=== PATIENT | female | born 1970 | race Caucasian/White ===

== ENCOUNTER 2018-08-11 06:32 | Day surgery (SDC) | payer BC ==
--- NOTE | 2018-08-06 12:17 | HP ---
HISTORY AND PHYSICAL: DATE OF SURGERY: 08/11/18 DATE OF OFFICE VISIT: 08/05/18 SURGEON: Rose Marie Rivera MD.* (DICTATED BY CARO WALTER) PROCEDURE: Right knee arthroscopy with partial meniscectomy, possible chondroplasty, and possible synovectomy. CHIEF COMPLAINT: Right knee pain. HISTORY OF PRESENT ILLNESS: Ms. Barnes is a 48-year-old female with complaints of right knee pain. An MRI confirms a meniscus tear. She is elected to proceed with surgery. PAST MEDICAL HISTORY: Denies. PAST SURGICAL HISTORY: 1. ACL reconstruction of the left knee. 2. D and C x2. CURRENT MEDICATIONS: Ibuprofen. ALLERGIES: 1. PENICILLIN. 2. CELEBREX. 3. SULFA. FAMILY HISTORY: Cancer. SOCIAL HISTORY: She is a 48-year-old female. She lives with her and states she does not smoke or use drugs. She uses occasional alcohol. REVIEW OF SYSTEMS: A complete 14-point review of systems was reviewed with the patient and all negative and noncontributory. PHYSICAL EXAMINATION GENERAL: She is well-developed, well-nourished, in no acute distress. VITAL SIGNS: She stands 64 inches tall, weighs 192 pounds. Her blood pressure 116/70 and heart rate 68. HEENT: Normocephalic and atraumatic. NECK: Supple. No palpable lymph nodes. PULMONARY: The lungs are clear to auscultation bilaterally. CARDIAC: Regular rate and rhythm. Strong S1, S2. ABDOMEN: Soft, nontender, and nondistended. MUSCULOSKELETAL: Right lower extremity, the skin is intact. There is no open wounds or abrasions. She has a mild to moderate joint effusion of the right knee. Range of motion is 0 to 100 degrees flexion. Positive Apley's and Bin's. She has 2+ dorsalis pedis pulses in the lower extremity. Muscle group strengths are intact at 5/5. She has intact sensation. NEUROLOGIC: She is alert and oriented x3. ASSESSMENT AND PLAN: Ms. Barnes is a 48-year-old female with complaints of right knee pain and an MRI confirms a lateral meniscus tear which has flipped superiorly. She has elected to proceed with a right knee arthroscopy with partial meniscectomy, possible chondroplasty, and possible synovectomy. Surgery scheduled for 08/11/[address] Rivera discussed the risks and benefits of the surgery on today's visit and all of her questions were answered. She will follow up with Dr. Rivera in two weeks after the surgery. CARO WALTER [id number]/[facility] #: [id number] FLACO
[~2018-08-11 06:32] MED LIST: Buffered Lidocaine 1% SYRIN* 1 ML/SYRINGE INTRADERM ONE; Famotidine IV* 10 MG/ML 2 ML (20 mg) IV ONE; Lactated Ringers 1000 ML Bag* 1,000 ML IV SCH
[2018-08-11] MEDS ORDERED: ROPIVACAINE 5 MG/ML 30 ML BTL (0.5%) ONE (06:55)
[2018-08-11] MEDS ORDERED: methylPREDNISolone ACETATE 80* 80 MG/ML 1 ML VIAL ONE (06:55)
[2018-08-11] MEDS ORDERED: EPINEPHRINE 1 MG/ML 1 ML VIAL ONE (06:55)
[2018-08-11] MEDS ORDERED: Clindamycin 900 MG/D5W BAG(*) 900 MG/50 ML BAG IVPB ONE (07:21)
[2018-08-11] MEDS ORDERED: Famotidine IV* 10 MG/ML 2 ML (20 mg) ONE (07:21)
[2018-08-11] MEDS ORDERED: Midazolam* 1 MG/ML 5 ML VIAL (5 MG) ONE (07:51)
[2018-08-11] MEDS ORDERED: fentaNYL* 50 MCG/ML 2 ML VIAL (100 MCG VIAL) ONE (07:51)
[2018-08-11] MEDS ORDERED: Propofol* 10 MG/ML 20 ML BTL ONE (07:55)
[2018-08-11] MEDS ORDERED: DiMENhydriNATE IV* 50 MG/ML VIAL ONE (07:55)
[2018-08-11] MEDS ORDERED: Dexamethasone IV* 4 MG/ML 1 ML (4 MG) ONE (07:55)
[2018-08-11] MEDS ORDERED: Ondansetron INJ* 2 MG/ML VIAL ONE (07:55)
[2018-08-11] MEDS ORDERED: Ketorolac INJ* 30 MG/ML 1 ML VIAL ONE (07:55)
[2018-08-11] MEDS ORDERED: Acetaminophen TAB* 325 MG PO PRN (08:42)
[2018-08-11] MEDS ORDERED: Ondansetron INJ* 2 MG/ML VIAL IV PRN (08:42)
[2018-08-11] MEDS ORDERED: oxyCODONE TAB* 5 MG TAB PO PRN (08:42)
[2018-08-11] MEDS ORDERED: Naloxone* 0.4 MG/ML 1 ML VIAL IV PRN (08:42)
[2018-08-11] MEDS ORDERED: HYDROmorphone INJ1* 1 MG/ML SYRINGE ONE (09:40)
[2018-08-11] MEDS ORDERED: oxyCODONE TAB* 5 MG TAB ONE (09:40)
[2018-08-11] MEDS ORDERED: Acetaminophen TAB* 325 MG ONE (09:41)
[2018-08-11] MEDS: HYDROmorphone INJ1* 1 MG/ML SYRINGE IV PRN ×4 (09:43→10:36)
[2018-08-11 12:04] VITALS: BP 157/95
--- NOTE | 2018-08-11 22:56 | OP ---
DATE OF OPERATION: 08/11/18 - [facility] DATE OF : 66 ATTENDING SURGEON: Rose Marie Rivera MD. MEDIA RELATIONS MANAGER: CARO Cervantes. Ms. Nevarez did help throughout the procedure with preparation of the leg, wound retraction, manipulation of the knee, and wound closure. ANESTHESIOLOGIST: Dr. Rutledge. ANESTHESIA: General. PRE-OP DIAGNOSIS: Right knee pain with lateral meniscal tear. POST-OP DIAGNOSES: 1. Right knee lateral meniscal tear, medial meniscal tear. 2. Njkudjeo-ea-gpfvyd osteoarthritis in the medial and patellofemoral compartments. OPERATIVE PROCEDURE: Right knee arthroscopy with partial medial meniscectomy, partial lateral meniscectomy, patellofemoral chondroplasty. ESTIMATED BLOOD LOSS: Less than 25 cc. SPECIMEN: None. COMPLICATIONS: None. BRIEF HISTORY/INDICATIONS: Ms. Barnes is a 48-year-old female who developed acute mechanical symptoms in the right knee along the lateral joint line. MRI confirmed a displaced lateral meniscal tear. She did have some known baseline arthritis. She failed conservative treatment. Due to the severity of the pain and failure of conservative treatment, she elected to have right knee arthroscopy with partial meniscectomy, possible chondroplasty, possible synovectomy, possible plica excision. Informed consent was obtained from the patient. She understood the risks of surgery included but were not limited to, bleeding, infection, damage to nearby structures, continued pain, need for further surgery, retear of the meniscus, progression of arthritis, stroke, heart attack, blood clot, and . She wished to proceed. INTRAOPERATIVE FINDINGS: Intraoperatively, the patient was noted to have a large parrot-beak type tear displaced anteriorly along the lateral meniscus. This involved the white-red zone. She had a radial tear in the posterior horn of the medial meniscus. She was noted to have grade 3 and 4 Outerbridge cartilage changes in the patellofemoral and medial compartment with exposed subchondral bone and cartilage flapping. DESCRIPTION OF PROCEDURE: Ms. Barnes was identified in the preanesthesia unit. Her right lower extremity was marked as the correct operative site. Informed consent was signed and placed in the chart. The patient was taken to the operating room and placed under general anesthesia. Right lower extremity was prepped and draped in the usual sterile fashion. Preop time-out was made to correctly identify the patient, side, and site. Appropriate perioperative antibiotics were given within 1 hour of incision. A 0.5 cm anterolateral portal incision was made with a #10 blade and carried down through the capsule. Trocar was introduced. The light and water sources were then turned on. As soon as the light and water sources were turned on, there was immediate visualization of the suprapatellar pouch. A tour was made. Suprapatellar pouch had no obvious abnormality. Patellofemoral compartment showed some cartilage flapping and grade 3 and 4 Outerbridge cartilage changes along the medial patellar facet. Medial gutters showed no obvious loose bodies. Medial compartment showed grade 3 and 4 Outerbridge cartilage changes of the medial femoral condyle with a large cartilage flap and exposed subchondral bone. A posterior medial meniscus tear was visualized. ACL and PCL appeared to be intact. The knee was placed in a [id number]-[id number]-nqee position. The entire anterolateral joint line was obscured by a displaced meniscal fragment. Under direct visualization, a medial portal incision was made with a #10 blade. Probe was introduced and a second tour of the knee joint was performed. Posteromedial meniscus tear was a radial tear of the white-red zone. Straight biter and shaver were used to perform partial medical meniscectomy. A smooth border of the posteromedial meniscus was obtained. Further probing of the medial meniscus showed no additional tears or slipped fragments. The knee was placed in a [id number]-[id number] position. Shaver and straight biter was used to perform partial lateral meniscectomy. This was a large parrot-beak type tear displaced into the joint space involving the white-red zone. This involved the majority of the lateral meniscus. Smooth border of the meniscus was obtained after extensive use of the shaver and straight biter. Further probing of the meniscus along its entirety did not show any additional fragments or tears. Lateral compartment had minimal arthritic changes. Lateral gutter showed no obvious abnormality. The radio-frequency ablation wand was used to smooth cartilage flapping along the medial patellar facet. The knee was copiously irrigated with sterile saline. All instruments were removed. The incisions were closed using 3-0 nylon suture. An intra-articular injection of 80 mg Depo-Medrol and 6 cc of 0.25% Marcaine was placed in the knee joint. The patient's incisions were covered with sterile Xeroform, 4x4s, and Webril. Geo wrap and cold pack were placed over this. The patient's anesthesia was reversed without difficulty. She was taken to the PACU in stable condition. Intended weightbearing will be weightbearing as tolerated. Intended DVT prophylaxis will be aspirin. She will follow up in 2 weeks' time for suture removal. [id number]/[facility] #: [id number] MTDD
== END 2018-08-11 12:00 | disposition home or self-care (01) ==
LOC: OR 06:32
PROVIDERS: ATTEND Orthopaedic Surgery Adult Reconstructive Orthopaedic Surgery
DX: S83.241A Other tear of medial meniscus, current injury, right knee, initial encounter (principal); S83.281A Other tear of lateral meniscus, current injury, right knee, initial encounter; M17.11 Unilateral primary osteoarthritis, right knee; X58.XXXA Exposure to other specified factors, initial encounter; Y92.9 Unspecified place or not applicable
CPT/HCPCS: 81025; A9270-GY; J1040; J1100; J1170; J1240; J1885; J2250; J2405; J2704; J2795; J3010